=== PATIENT | female | born 1960 | race African-American/Black ===

== ENCOUNTER 2017-10-14 07:16 | Emergency (ER) | payer SELFPAY ==
[2017-10-14 07:32] VITALS: BP 168/96; PULSE 87; TEMP 98.9; BMI 39.5
[2017-10-14] MEDS ORDERED: IBUPROFEN 600 MG TABLET (FP) PO ONE ×2 (08:15→08:19)
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
== END 2017-10-14 08:59 | disposition home or self-care (01) ==
LOC: JER 07:16
DX: R51 Headache (principal); I10 Essential (primary) hypertension; V47.6XXA Car passenger injured in collision with fixed or stationary object in traffic accident, initial encounter; Y92.488 Other paved roadways as the place of occurrence of the external cause; Y93.89 Activity, other specified; Y99.8 Other external cause status
CPT/HCPCS: 99281-25

== ENCOUNTER 2021-01-15 14:18 | Emergency (ER) | payer OTHER ==
[2021-01-15 15:30] VITALS: BMI 35.9
[2021-01-15] MEDS ORDERED: levETIRAcetam 500 MG/5 ML INJECTION VIAL IVPB ONE ×2 (15:55→16:04)
[2021-01-15 16:15] LABS: BASO % 0.7 % (0-2.0); EOS % 1.3 % (0-4.5); HEMATOCRIT 30.6 % (32.4-45.2); HEMOGLOBIN 10.2 GM/dL (10.7-15.3); LYMPH % 21.2 % (8-40); MCH 27.8 pg (25.7-33.7); MCHC 33.5 g/dl (32.0-36.0); MEAN PLT VOLUME 7.1 fl (7.5-11.1); MONO % 5.9 % (3.8-10.2); NEUT % 70.9 % (42.8-82.8); PLATELET COUNT 332 10^3/uL (134-434); RBC 3.69 M/mm3 (3.60-5.2); RDW 15.8 % (11.6-15.6); WHITE BLOOD COUNT 9.9 K/mm3 (4.0-10.0)
[2021-01-15 16:35] LABS: CALCIUM 8.6 mg/dL (8.5-10.1)
[2021-01-15 16:36] LABS: ALBUMIN 3.8 g/dl (3.4-5.0); BLOOD UREA NITROGEN 27.2 mg/dL (7-18); MAGNESIUM 2.3 mg/dL (1.8-2.4)
[2021-01-15 16:39] LABS: CREATININE 1.4 mg/dL (0.55-1.3)
[2021-01-15 16:40] LABS: BILIRUBIN,TOTAL 0.2 mg/dL (0.2-1); TOT PROT 7.9 g/dl (6.4-8.2)
[2021-01-15] MEDS ORDERED: LACTATED RINGERS SOLUTION 1000 ML INFUS.BAG IV ONE (17:11)
[2021-01-15] MEDS ORDERED: ACETAMINOPHEN 325 MG TABLET (FP) PO ONE (18:22)
[2021-01-15] MEDS ORDERED: ACETAMINOPHEN 325 MG TABLET (FP) ONE (19:08)
[2021-01-15 19:15] VITALS: BP 159/92; PULSE 82; TEMP 98
== END 2021-01-15 19:15 | disposition home or self-care (01) ==
LOC: JER 14:18
PROC: 3E033GC Introduction of Other Therapeutic Substance into Peripheral Vein, Percutaneous Approach (ICD-10-PCS; principal; 2021-01-15)
DX: G40.89 Other seizures (principal)
CPT/HCPCS: 36415; 80053; 80177; 83735; 85025; 93005; 93010; 99284-25